=== PATIENT | female | born 2000 | race Asian ===

== ENCOUNTER 2018-04-01 05:25 | Day surgery (SDC) | payer MEDICAID ==
--- NOTE | 2018-03-31 21:32 | PDGENHP ---
History and Physical - Chief Complaint BILATERAL HIP PAIN - History of Present Illness 1. 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 ~~Lupus (on chronic steroids since February 2016) 3. ~~Thalassemia trait HISTORY OF PRESENT ILLNESS: Judeis a 17 y.o.~~~active female~who I have had the pleasure to consult on today. I have enjoyed meeting her. She~lives in [place], [place]. 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 ~She~ is single; she~has no~children. ~Judeenjoys training her puppy, hanging out with family, occasionally goes to the gym. Pain started in Right hip in mid-June when walking around campus. Had XR by sociology faculty member in which was negative per patient. Then left hip became painful in December for which her sociology faculty member got an MRI and which showed AVN bilaterally. Patient carries a diagnosis of Lupus and was on 10 mg of prednisone/daily (had been on up to 60 mg of prednisone back in February 2016 when she was first diagnosed and had tapered to 10 mg /daily over past 2 years). With diagnosis of AVN was changed to5 mg prednisone and started taking calcium supplements by sociology faculty member. Was not put on crutches or received other treatment for AVN since then. Presentation today is of anterior bilateral~hip pain (right >> left). Prior to June 2017 her hips had never bothered her. No history of dysplasia or back pain. Judehas~utilized medication for pain management, including NSAID and OTC acetaminophen. Judehas used medication intermittently - but without benefit. Judeunderstands that she~has a hip and pelvis problem which should be researched and wishes to get a better understanding of her~hip status, followed by an establishment of a treatment strategy, hoping she~would be able to get back to her~well being active life. History: Past medical history: ~ Patient ~has a past medical history of Lupus and Thalassemia trait. Relevant familial history: None which is relevant Past surgical history: None Judehas never received general anesthesia. I have reviewed, verified and agree with the past medical, surgical, family and social history. Current Medications:~currently has no medications in their medication list. ALLERGIES:~has no allergies on file. Objective: Physical Examination: Judeis 5~feet 3~inches tall and weighs 142~Lbs. Judeis AAO x3; she~is well- nourished, in NAD. Skin is warm and dry. ~Breathing is non-labored. ~CV with RRR by pulse. Abdomen is soft, NTND. Currently, she~walks with a normal~gait. Trendelenburg sign is negative~and proprioception is normal, both~sides. She~presents with mild~signs of joint laxity. Beightons Score: 2 ~ Lower spine examination is negative~for sciatic or femoral nerve irritation with negative~SLR &~femoral stretch tests. Range of motion of the spine is normal~for flexion, extension, and rotations, with no~associated pain. Strength, Sensation and pulses are normal - bilaterally Ankles and knees exams are normal~and no~mal-alignment is evident. She~has no leg length discrepancy. Thigh circumference is symmetric~with no evidence for muscle atrophy~on both~ sides. Hip ROM (degrees): FL ER At 90~hip FL IR At 90~hip FL AB AD EX IR Neutral hip ER Neutral hip R 105 60 10 45 5 10 30 40 L 105 50 10 45 5 10 30 40 Specific hip and pelvis tests: Impingement Test ELIZABETH Roll Add. Longus R +++ +++ Negative Negative L Negative +++ Negative Negative Glut. Med ITB Posterior Imp R Negative 5/5 strength Negative 5/5 strength Negative L Negative 5/5 strength Negative 5/5 strength Negative Squeeze test measured normal Bony Symphysis pubis is pain free~to touch while concentric activity of the rectus abdominis, does not~produce pain at its insertion. Ilio Psos specific tests are negative bilaterally HF has no pain both hips. no~capsule tenderness bilaterally Greater trochanteric burse is pain free~on both hips. Piriformis tests: FAIR is negative, with~local signs of neuritis related to sciatic nerve. SIJs examination is normal~with normal~ELIZABETH in relation and local tenderness. Hamstrings tests are negative both hips. On a daily basis, the following percentages reflect Suma's overall total pain: Deep hip: 100% Imaging: Radiology studies which I have personally reviewed, analyzed and measured are below: XR: AP of the hip and pelvis: AP shows flat sourcil with good coverage measurements. Taken on 03/20/18 shows avascular necrosis of bilateral femoral heads with subchondral fracture line (crescent sign) on the right (Ficat stage 3). Sclerosis on the left without collapse (Ficat 2). ~ MRI from 12/31/17 shows: avascular necrosis of bilateral femoral heads, right is worse than left. Overall the cartilage surfaces appear to remain intact. Early collapse on the right present. Impression and plan: Judeis a 17 y.o.~active female~suffering from symptomatic Bilateral~hip pain due to Bilateral (right>left) avascular necrosis of femoral heads~causing significant disability to her~and altering her~sport and life activities. Physical examination, imaging, and her~story correspond with the diagnosis mentioned above. We educated Suma about the diagnosis of AVN and her treatment options. We recommend bilateral core decompressions with BMAC as soon as possible with utilization of crutches until she has surgery done. We discussed that her right hip is in a more advanced stage than her left, and thus the result of core decompression are more tenuous. However, we do believe it is worth try as the only other option after this is hip replacement surgery. We discussed that the rehab after surgery will be relatively fast, her pain relief from the AVN nearly immediate, but that we will want her to protect her weight bearing by using crutches for 4 - 6 weeks after surgery. As she did not previously have hip pain prior to the development of AVN we do not belive there is any other hip diagnoses that is resulting in her hip pain. Also - given her diagnosis of thalassemia trait and lupus we want Suma to get recommendations from her sociology faculty member regarding dvt prophylaxis postoperatively and any reduction in her current corticosteroid use would be ideal. Judeis happy with this plan. I have also supplied her~with handouts, outlining the expected surgical treatment and rehab involved. I wish~Suma~all the best, ~~ Maryanne Chaidez MD History Information - Allergies/Home Medication List Allergies/Adverse Reactions: amoxicillin Allergy (Verified 03/22/18 15:57) Hives Home Medications: Aspirin 03/22/18 [Last Taken Unknown] Calcium 03/22/18 [Last Taken Unknown] Cholecalciferol (Vitamin D3) 03/22/18 [Last Taken Unknown] Plaquenil 200 mg (*) 03/22/18 [Last Taken Unknown] Prednisone 03/22/18 [Last Taken Unknown] Tacrolimus 03/22/18 [Last Taken Unknown] I have personally reviewed and updated: medical history - Social History Smoking Status: Never smoked Review of Systems Review of Systems: Physical Exam Physical Exam:
[2018-04-01] MEDS ORDERED: ACETAMINOPHEN 500 MG TAB PO ONE (05:53)
[2018-04-01] MEDS ORDERED: PREGABALIN 150 MG CAP PO ONE (05:53)
[2018-04-01] MEDS ORDERED: CLINDAMYCIN 900 MG/DEXTROSE 50 ML IV ONE (05:53)
[2018-04-01] MEDS ORDERED: LR 1,000 ML IV ONE (05:55)
[2018-04-01] MEDS ORDERED: BUPIVACAINE/EPI 0.5% 30 ML SDV ONE (06:42)
[2018-04-01] MEDS ORDERED: MIDAZOLAM 2 MG/2 ML VIAL IVP ONE (07:00)
[2018-04-01] MEDS ORDERED: MIDAZOLAM 2 MG/2 ML VIAL ONE (07:00)
--- NOTE | 2018-04-01 07:00 | PDANEPAE ---
ANE History of Present Illness bilateral AVN for hip decompression ANE Past Medical History - Cardiovascular History Hx Hypertension: No Hx Arrhythmias: No Hx Chest Pain: No Hx Coronary Artery / Peripheral Vascular Disease: No Hx CHF / Valvular Disease: No Hx Palpitations: No - Pulmonary History Hx COPD: No Hx Asthma/Reactive Airway Disease: No Hx Recent Upper Respiratory Infection: No Hx Oxygen in Use at Home: No Hx Sleep Apnea: No Sleep Apnea Screening Result - Last Documented: Negative - Neurologic History Hx Cerebrovascular Accident: No Hx Seizures: No Hx Dementia: No - Endocrine History Hx Diabetes: No Hypothyroid: No Hyperthyroid: No Obesity: no - Renal History Hx Renal Disorders: Yes Renal History Comment: hx kidney problems in 2016 R/T lupus - Liver History Hx Hepatic Disorders: No - Neurological & Psychiatric Hx Hx Neurological and Psychiatric Disorders: Yes Neurological / Psychiatric History Comment: Lupus - Cancer History Hx Cancer: No - Congenital Disorder History Hx Congenital Disorders: Yes Congenital History Comment: lupus - GI History Hx Gastrointestinal Disorders: No - Other Health History Other Health History: anemia - Chronic Pain History Chronic Pain: No - Surgical History Prior Surgeries: none ANE Review of Systems Review of systems is: negative Review of Systems: - Exercise capacity METS (RN): 4 METS ANE Patient History - Allergies Allergies/Adverse Reactions: amoxicillin Allergy (Verified 03/22/18 15:57) Hives - Home Medications Home medications: home medication list seen and reviewed Home Medications: Aspirin 03/22/18 [Last Taken 03/25/18] Calcium 03/22/18 [Last Taken 03/25/18] Cholecalciferol (Vitamin D3) 03/22/18 [Last Taken 03/25/18] Plaquenil 200 mg (*) 03/22/18 [Last Taken 03/31/18 1100] Prednisone 03/22/18 [Last Taken 03/31/18 1100] Tacrolimus 03/22/18 [Last Taken 03/31/18 11:50] - NPO status NPO Since - Liquids (Date): 03/31/18 NPO Since - Liquids (Time): 23:50 NPO Since - Solids (Date): 03/31/18 NPO Since - Solids (Time): 20:00 - Anes Hx Anes Hx: no prior problems - Smoking Hx Smoking Status: Never smoked - Family Anes Hx Family Hx Anesthesia Complications: none ANE Labs/Vital Signs - Vital Signs Blood Pressure: 113/70 Heart Rate: 67 Respiratory Rate: 16 O2 Sat (%): 98 Height: 160.02 cm Weight: 63.503 kg ANE Physical Exam - Airway Neck exam: FROM Mallampati Score: Class 1 Mouth exam: normal dental/mouth exam - Pulmonary Pulmonary: no respiratory distress - Cardiovascular Cardiovascular: regular rate and rhythym - ASA Status ASA Status: II ANE Anesthesia Plan Anesthesia Plan: GA w LMA
[2018-04-01] MEDS ORDERED: PROPOFOL 200 MG/20 ML VIAL ONE (07:04)
[2018-04-01] MEDS ORDERED: fentaNYL 100 MCG/2 ML INJ ONE ×2 (07:04→07:30)
[2018-04-01] MEDS ORDERED: LIDOCAINE 2% 5 ML SDV ONE (07:07)
[2018-04-01] MEDS ORDERED: ONDANSETRON 4 MG/2 ML VIAL ONE ×2 (07:07→10:19)
[2018-04-01] MEDS ORDERED: DEXAMETHASONE 4 MG/ML VIAL ONE (07:07)
[2018-04-01] MEDS ORDERED: HYDROCORTISONE 100 MG/2 ML VIAL ONE (07:26)
[2018-04-01] MEDS ORDERED: PHENYLEPHRINE HCL 100 MCG/ML SYR ONE (07:33)
--- NOTE | 2018-04-01 08:24 | POSTANESTH ---
Post Anesthetic Evaluation Cardiovascular Status: Normal, Stable Respiratory Status: Normal, Stable Level of Consciousness/Mental Status: Can Participate in Eval, Mildly Sleepy, Arousable Pain Control: Adequate, Prn Tx Ordered Nausea/Vomiting Control: Adequate, Prn Tx Ordered Complications Possibly Related to Anesthesia: None Noted
[2018-04-01] MEDS ORDERED: oxyCODONE IR 5 MG TAB PO PRN (08:57)
[2018-04-01] MEDS ORDERED: HYDROCODONE/APAP 5/325 TAB PO PRN (08:57)
[2018-04-01] MEDS ORDERED: NALOXONE HCL 0.4 MG/ML INJ IVP PRN (08:57)
[2018-04-01] MEDS ORDERED: HYDROmorphONE/DILAUDID 1 MG/ML INJ IVP PRN (08:57)
[2018-04-01] MEDS ORDERED: LR 500 ML IV PRN (08:57)
[2018-04-01] MEDS ORDERED: ACETAMINOPHEN 500 MG TAB PO PRN (08:57)
[2018-04-01] MEDS ORDERED: fentaNYL 100 MCG/2 ML INJ IVP PRN (08:57)
[2018-04-01] MEDS ORDERED: ALBUTEROL 3 ML DEYVIAL IH PRN (08:57)
[2018-04-01] MEDS ORDERED: ONDANSETRON 4 MG/2 ML VIAL IVP PRN (08:57)
[2018-04-01] MEDS ORDERED: PROMETHAZINE HCL 25 MG/ML INJ IVP PRN (08:57)
[2018-04-01] MEDS ORDERED: KETOROLAC 30 MG/1 ML SDV ONE (09:00)
[2018-04-01 11:55] VITALS: BP 96/63
== END 2018-04-01 12:10 | disposition home or self-care (01) ==
LOC: FSGY 05:25
PROVIDERS: ATTEND Orthopaedic Surgery Sports Medicine
PROC: 0SQ Lower Joints, Repair (ICD-10-PCS; principal; 2018-04-01 07:15)
PROC: 0SQ Lower Joints, Repair (ICD-10-PCS; principal; 2018-04-01 07:15)
DX: M87.9 Osteonecrosis, unspecified (principal); M32.9 Systemic lupus erythematosus, unspecified; Z79.52 Long term (current) use of systemic steroids; D56.3 Thalassemia minor
CPT/HCPCS: C1713; J1100; J1720; J1885; J2250; J2370; J2405; J2704; J3010